=== PATIENT | male | born 2000 | race Caucasian/White ===

== ENCOUNTER 2022-10-01 23:45 | Emergency (ER) | payer MEDICAID, OTHER ==
[~2022-10-01] VITALS: Ht 177.8 cm; Wt 76.7 kg
[2022-10-01 23:57] VITALS: BP 129/90
--- NOTE | 2022-10-02 | NUR ---
TO LOBBY A/W BED AMBULATORY
[2022-10-02 00:20] LABS: APPEARANCE,URINE CLEAR (CLEAR); BILIRUBIN,URINE NEGATIVE (NEGATIVE); BLOOD, URINE TRACE-I (NEGATIVE); COLOR,URINE YELLOW (YELLOW); LEUKOCYTE ESTERASE ,URINE 2+ (NEGATIVE); NITRITE, URINE NEGATIVE (NEGATIVE); UGLUCOSE NEGATIVE (NEGATIVE)
[2022-10-02 00:28] LABS: RBC,URINE 0-5 /HPF (0-5)
[2022-10-02 00:29] LABS: WBC,URINE 20-60 /HPF (0-5)
--- NOTE | 2022-10-02 00:46 | NUR ---
MARTINEZ WAN ASSESSING PATIENT
--- NOTE | 2022-10-02 00:48 | NUR ---
TO BED 3
[2022-10-02] MEDS ORDERED: cefTRIAXone 500 MG in LIDOCAINE MPF 1% 1 ML IM ONE (00:50)
--- NOTE | 2022-10-02 00:59 | NUR ---
Patient lying in bed, A/Ox4, chest rise and fall symmetrical, no s/s of distress.
[2022-10-02] MEDS ORDERED: cefTRIAXone 500 MG VIAL ONE (01:01)
[2022-10-02] MEDS ORDERED: LIDOCAINE MPF 1% 5 ML ONE (01:02)
[2022-10-02] MEDS ORDERED: DOXY-690 PO (01:36)
--- NOTE | 2022-10-02 02:00 | NUR ---
Patient lying in bed, A/Ox4, chest rise and fall symmetrical, no s/s of distress.
[2022-10-02 02:08] VITALS: BP 121/84
--- NOTE | 2022-10-02 17:45 | NUR ---
LATE ENTRY. RECEIVED POSITIVE GONORRHEA RESULT. FORM GIVEN TO DR SUAREZ. TREATMENT APPROPRIATE. FORM SENT TO INFECTION CONTROL. FORM PLACED IN BINDER.
--- NOTE | 2022-10-02 17:45 | NUR ---
Jose Alberto enriquez in ED - 10/02/22 at 1749 by [email or web address] LATE ENTRY. RECEIVED POSITIVE URINE CULTURE. FORM GIVEN TO DR SUAREZ. TREATMENT APPROPRIATE. FORM PLACED IN BINDER.
== END 2022-10-02 02:10 | disposition home or self-care (01) ==
LOC: MED 23:45
DX: R30.0 Dysuria (principal); N48.89 Other specified disorders of penis; Z20.2 Contact with and (suspected) exposure to infections with a predominantly sexual mode of transmission; Z79.899 Other long term (current) drug therapy
CPT/HCPCS: 36415; 81001; 86592; 86702; 86703; 87086; 87491; 96372; 99283; J0696; J2001